=== PATIENT | female | born 1975 | race African-American/Black ===

== ENCOUNTER 2020-08-18 10:35 | Emergency (ER) | payer OTHER ==
[~2020-08-18] VITALS: Ht 162.6 cm; Wt 102.1 kg
[~2020-08-18 10:35] MED LIST: ANAPROX; FLEXERIL PO; MOTRIN 600 MG600 M1 OR; NORCO 5-325 TA1 EACH PO
[2020-08-18 10:48] LABS: URINE BILIRUBIN NEGATIVE (Negative); URINE BLOOD NEGATIVE (Negative); URINE CLARITY CLEAR; URINE COLOR YELLOW; URINE GLUCOSE-RANDOM* NEGATIVE (Negative); URINE KETONES 1+ (Negative); URINE LEUKOCYTES-REFLEX NEGATIVE (Negative); URINE NITRITE-REFLEX NEGATIVE (Negative); URINE PROTEIN (DIPSTICK) NEGATIVE (Negative); URINE UROBILINOGEN 0.2 E.U./dl (0.2-1.0)
[2020-08-18] MEDS ORDERED: NOHOMEMEDICATIONS (10:52)
[2020-08-18] MEDS ORDERED: NAPROSYN500 MG PO (13:51)
[2020-08-18 13:55] VITALS: BP 138/82
== END 2020-08-18 13:55 | disposition home or self-care (01) ==
LOC: ER 10:35
PROVIDERS: Emergency Medicine
DX: R10.2 Pelvic and perineal pain (principal); Z90.49 Acquired absence of other specified parts of digestive tract; Z88.1 Allergy status to other antibiotic agents